=== PATIENT | male | born 1990 | race Caucasian/White ===

== ENCOUNTER 2018-05-05 17:18 | Observation (INO) | payer MEDICAID, SELFPAY ==
[2018-05-05] VITALS (8 sets, daily range): BP systolic 108–141; BP diastolic 52–83; PULSE 77–99; RESP 12–21; TEMP 36.1–37.3; O2SAT 92–96
--- NOTE | 2018-05-05 18:02 | DI.CT_ITS ---
SYMPTOMS/DIAGNOSIS: RIGHT UPPER AND LOWER QUADRANT ABDOMINAL PAIN CT EXAMINATION OF THE ABDOMEN AND PELVIS: The study was carried out with an intravenous administration of 125 cc of Omnipaque 350. There is some atelectasis and scarring involving the lung bases. A fatty liver is demonstrated. The gallbladder is unremarkable. There are no gallstones or ductal dilatation. The pancreas and spleen and adrenals are normal. Contrast material is noted in the intrarenal collecting structures. The possibility of calculi could not be entirely excluded. There are no ureteral calculi. There is some mild wall prominence in the proximal stomach and loops of bowel in the left upper quadrant of the abdomen. This is likely related to underdistention. Evaluation of the bowel is limited secondary to the lack of oral contrast. There is no evidence of bowel obstruction. The appendix is dilated, appearing to measure 1.1 cm. There is wall prominence. There are periappendiceal infiltrative changes. Mild bladder wall prominence is identified. The prostate is heterogeneous with calcifications identified. There is no evidence of free air or free fluid in the intraperitoneal space. No acute bony abnormality seen. A small fat- containing umbilical hernia is demonstrated and there is a left inguinal hernia that contains fat. There is no aortic aneurysm. Prominent lymph nodes in the right gali-abdomen measuring up to 1.4 cm in short axis are demonstrated. This may be reactive. SUMMARY: The appendix is dilated, measuring up to 1.1 cm. There is wall prominence and periappendiceal inflammatory changes are demonstrated. The findings would be consistent with an acute appendix. There are prominent enlarged lymph nodes in the right gali-abdomen measuring up to 1.4 cm in short axis. These findings may be reactive. Note is made of some mild wall prominence in the proximal stomach and loops with small bowel, likely related to underdistention. There is fatty infiltration of the liver and mild bladder wall prominence is identified and should be correlated with the patient's clinical status regarding the possibility of infection.
--- NOTE | 2018-05-05 18:05 | ED.GENADUL_ITS ---
Discharge Plan Disposition Patient Disposition: [facility] INPATIENT Condition: Improving Discharge Details Chief Complaint: Abd Prob Clinical Impression: Acute appendicitis Reason For Visit: ACUTE APPENDICITIS Admit Date/Time: 05/05/18 20:37 Admit Provider: Jennifer Thomson Attending Provider: Jennifer Thomson Primary Care Provider: Andria Melgar ED Provider: Hiwot Corona Discharge Data Discharge Date/Time-TO BE ENTERED AT DEPARTURE: 05/05/18 20:56 Medical Decision Making 27-year-old male who presents with right sided intermittent, aching, crampy pain , extending from RUQ to RLQ, worse in right lower quadrant since last night. Vitals within normal limits. Afebrile. Patient is tender to palpation in the right lower quadrant with rebound tenderness. Differential diagnosis includes acute appendicitis, acute cholecystitis, cholelithiasis, gastritis, pancreatitis, peptic ulcer disease. Will place an IV, bolus IV fluids, labs, CT abdomen and pelvis with IV contrast and dose of Toradol and Zofran. 1950 --labs and imaging reviewed. White blood cell count 21. CT notes appendicitis. Discussed with Dr. Villalpando and she will take patient to the OR. Patient informed of plan. Patient states pain improved. He appears more comfortable and is texting on phone. HPI General Mode of arrival: ambulatory . Date/Time Provider Initiated Documentation: 05/05/18 17:53 . Limitations to Documentation: no limitations . Information obtained by: patient . HPI Narrative: Patient is a 27-year-old male who presents to the ED with a complaint of right-sided abdominal pain since last night. Patient states the pain is worse in the right lower quadrant. He describes the pain is intermittent, aching, crampy, worse with movement or lifting. He states pain is currently 3/10. He denies radiation of pain. He states the pain is better with rest and not moving. He admits to nausea but denies any vomiting. He also admits to decreased appetite since last night. He states his last bowel but was this morning and within normal limits without bleeding. He denies fever , urinary symptoms. Past medical history: Respiratory spherocytosis Surgical history: Splenectomy at age 4 Social history: Denies tobacco, alcohol or drugs Medications: None Allergies: None PCP: None - moved from [place] in March Related Data Home Medications Medication Instructions Recorded Confirmed acetaminophen [Tylenol] 650 mg PO Q4H PRN PRN #30 tab 05/06/18 ibuprofen 600 mg PO QID PRN #30 cap 05/06/18 oxycodone 5 mg PO Q6H PRN PRN #5 tab 05/06/18 Previous Rx's Medication Instructions Recorded acetaminophen [Tylenol] 650 mg PO Q4H PRN PRN #30 tab 05/06/18 ibuprofen 600 mg PO QID PRN #30 cap 05/06/18 oxycodone 5 mg PO Q6H PRN PRN #5 tab 05/06/18 Allergies Allergy/AdvReac Type Severity Reaction Status Date / Time No Known Allergies Allergy Unverified 05/05/18 17:31 General Stated Complaint: Abd Prob VIC: 3 Review of Systems Review of Systems All systems reviewed & are unremarkable except as noted in HPI and below Constitutional Denies chills, Denies excessive sweating, Denies fatigue, Denies fever(s), Denies weakness and Denies weight loss Eyes Reports system reviewed and no additional complaints, except as docu and Denies blurry vision ENT Denies vertigo, Denies dizziness, Denies otalgia, Denies nasal congestion, Denies sore throat and Denies throat swelling Cardiovascular Denies chest pain, Denies syncope, Denies rapid heart rate and Denies dyspnea Respiratory Denies dyspnea Gastrointestinal Reports abdominal pain, Denies diarrhea, Reports nausea and Denies vomiting Genitourinary Denies hematuria, Denies dysuria and Denies flank pain Musculoskeletal Denies back pain and Denies joint swelling Integumentary/Breasts Denies lesions and Denies rash Neurologic Denies behavioral changes, Denies confusion, Denies vertigo, Denies dizziness, Denies syncope and Denies weakness Psychiatric Denies behavioral changes, Denies confusion and Denies depression Endocrine Denies excessive sweating and Denies fatigue Hematologic/Lymphatic Denies easy bruising and Denies lymphadenopathy Allergic/Immunologic Denies throat swelling PFSH Social History Smoking/Tobacco Use Status: Never Exam Const General: cooperative and healthy appearing Orientation: alert and awake [facility] Head: normal to inspection Ears: hearing grossly normal bilaterally and external ears normal General nose exam: external nose normal Face and sinus: normal facial exam Mouth: oral mucosae normal Eyes General: appearance normal, both eyes and all related structures Eyelids: eyelids normal EOM: EOM intact bilaterally Neck Neck: normal visual inspection Lymphatic: no lymphadenopathy noted Chest Chest: normal inspection of the chest Resp Effort & Inspection: normal respiratory effort and able to speak in complete sentences Auscultation: clear to auscultation bilaterally Cardio Rate: regular rate Rhythm: regular rhythm GI Inspection: normal to inspection Palpation: soft, not firm, no guarding, no hepatosplenomegaly, no masses and tender (Right side of abdomen, extending from right upper quadrant to right lower quadrant. Pain worse in right lower quadrant with positive rebound) Auscultation: normal bowel sounds Other: Negative heel jar sign. Negative obturator sign. Skin General skin exam: no rashes or lesions noted Neuro General: alert and awake Cognition: normal cognition Speech: speech normal Gait: normal gait Motor: muscle tone normal throughout Sensory Exam: no sensory deficits noted Extrem General: normal to inspection, full ROM and no edema Psych Appearance: grossly normal Mental Status: mental status grossly normal Speech and Movement: speech and movement normal Affect: normal affect Thought Process: normal Course Laboratory Tests Range/Units 05/05/18 05/05/18 18:30 18:30 WBC (4.4-10.8) k/cumm 21.36 H RBC (4.50-6.00) m/cumm 5.00 Hgb (13.5-17.5) g/dL 16.0 Hct (40.0-50.0) % 42.0 MCV (80-95) fL 84.0 MCH (27.0-33.0) pg 32.0 MCHC (32.0-36.0) g/dL 38.1 H RDW (11.8-14.1) % 14.6 H Plt Count (130-400) x1000/uL 643 H MPV (8.0-11.0) fL 8.6 Sodium (136-145) mmol/L 142 Potassium (3.5-5.1) mmol/L 3.8 Chloride (98-107) mmol/L 105 Carbon Dioxide (21.0-32.0) mmol/L 30.9 Anion Gap (3-11) mmol/L 6.1 BUN (7-18) mg/dL 16 Creatinine (0.70-1.30) mg/dL 1.01 Estimated GFR/1.73 m2 (mL/min/1.73m2) >= 60.00 Glucose (70-100) mg/dL 96 Calcium (8.5-10.1) mg/dL 8.8 Total Bilirubin (0.2-1.0) mg/dL 1.4 H AST (15-37) U/L 23 ALT (12-78) U/L 63 Alkaline Phosphatase (46-116) U/L 80 Total Protein (6.4-8.2) g/dL 7.6 Albumin (3.4-5.0) g/dL 4.1 Lipase (73-393) U/L 83 Vital Signs Temperature 98.1 F 05/05/18 17:26 Pulse 99 H 05/05/18 17:26 Respiratory Rate 16 05/05/18 17:26 Blood Pressure 131/74 05/05/18 17:26 Pulse Oximetry 96 05/05/18 17:26 Temperature 98.1 F 05/05/18 17:26 Temperature Source Skin 05/05/18 17:26 Pulse 99 H 05/05/18 17:26 Respiratory Rate 16 05/05/18 17:26 Respiratory Effort Non-Labored 05/05/18 17:26 Blood Pressure 131/74 05/05/18 17:26 Pulse Oximetry 96 05/05/18 17:26 Oxygen Delivery Method Room Air 05/05/18 17:26 Oxygen Flow Rate 0 05/05/18 17:26 Pain Level 3 05/05/18 17:26
[2018-05-05] MEDS: Ketorolac 30 MG/ML VIAL IVP (18:40)
[2018-05-05 18:48] LABS: Mean Platelet Volume 8.6 fL (8.0-11.0); Platelet Count 643 x1000/uL (130-400); RBC Distribution Width 14.6 % (11.8-14.1); White Blood Cell Count 21.36 k/cumm (4.4-10.8)
[2018-05-05] MEDS: Normal Saline 1,000 ML 1000 ML IV (18:54)
[2018-05-05] MEDS: Ondansetron 4 MG/2 ML VIAL IVP (18:54)
[2018-05-05 19:10] LABS: ALT 63 U/L (12-78); AST 23 U/L (15-37); Albumin 4.1 g/dL (3.4-5.0); Alkaline Phosphatase 80 U/L (46-116); Anion Gap 6.1 mmol/L (3-11); BUN 16 mg/dL (7-18); Bilirubin, Total 1.4 mg/dL (0.2-1.0); CO2 30.9 mmol/L (21.0-32.0); CREATININE 1.01 mg/dL (0.70-1.30); Calcium 8.8 mg/dL (8.5-10.1); Chloride 105 mmol/L (98-107); Glucose 96 mg/dL (70-100); Lipase 83 U/L (73-393); Potassium 3.8 mmol/L (3.5-5.1); Sodium 142 mmol/L (136-145); Total Protein 7.6 g/dL (6.4-8.2)
[2018-05-05 19:11] LABS: Mean Corp. HGB Concentration 38.1 g/dL (32.0-36.0)
[2018-05-05] MEDS: Omnipaque 350 MG/ML 100 ML BTL IV (19:14)
--- NOTE | 2018-05-05 19:51 | DI.VRAD_ITS ---
EXAM: CT Abdomen and Pelvis With Intravenous Contrast EXAM DATE/TIME: 05/05/2018 6:05 PM CLINICAL HISTORY: 27 years old, male; Signs and symptoms; Other: Ruq/rlq abd pain; Prior surgery; Surgery date: 6+ months; Surgery type: Splenectomy at the age of 4; Patient HX: R/O cholecystitis/appendicitis TECHNIQUE: Axial computed tomography images of the abdomen and pelvis with intravenous contrast. All CT scans at this facility use at least one of these dose optimization techniques: automated exposure control; mA and/or kV adjustment per patient size (includes targeted exams where dose is matched to clinical indication); or iterative reconstruction. Coronal and sagittal reformatted images were created and reviewed. CONTRAST: 125 ml of omnipaque 350 administered intravenously. COMPARISON: No relevant prior studies available. FINDINGS: Lower thorax: Atelectasis or scarring at the lung bases. Gas in the distal esophagus which can be seen with reflux. ABDOMEN: Liver: Hepatic steatosis. Gallbladder and bile ducts: Contracted gallbladder with no gallstones identified. Pancreas: Normal pancreas. Spleen: Normal. No splenomegaly. Adrenals: Normal adrenal glands. Kidneys and ureters: Probable contrast in the intrarenal collecting systems. Superimposed calculi would be difficult to exclude. No ureteral calculi seen. Stomach and bowel: There is some mild wall prominence to the proximal stomach and loops of bowel in the left upper quadrant of the abdomen (series 5 image 40). This may be related to under distention but should be correlated with any concern for gastritis/enteritis. Evaluation of the bowel is limited secondary to the lack of oral contrast. No evidence of bowel obstruction. Appendix: The appendix is dilated in appearance measuring 1.1 cm. There is wall prominence. There is david-appendiceal infiltrative changes. PELVIS: Bladder: Mild wall prominence. Reproductive: Prostate is heterogeneous with calcifications noted. ABDOMEN and PELVIS: Intraperitoneal space: Normal. No free air. No significant fluid collection. Bones/joints: No acute fracture. No dislocation. Mild skeletal degenerative changes. Soft tissues: Small fat containing umbilical hernia. Left inguinal hernia containing fat. Vasculature: Normal. No abdominal aortic aneurysm. Lymph nodes: Prominent lymph nodes in the right hemiabdomen measuring up to 1.4 cm on short axis. These may be reactive. IMPRESSION: 1.The appendix is dilated in appearance measuring 1.1 cm. There is wall prominence. There is david- appendiceal infiltrative changes. Findings most consistent with appendicitis in the appropriate clinical setting. 2. Prominent/enlarged lymph nodes in the right hemiabdomen measuring up to 1.4 cm on short axis. These may be reactive. Followup could be considered. 3.There is some mild wall prominence to the proximal stomach and loops of bowel in the left upper quadrant of the abdomen (series 5 image 40). This may be related to under distention but should be correlated with any concern for gastritis/enteritis. 4. Hepatic steatosis. Mild urinary bladder wall prominence that should be correlated with any concern for infection. Other findings as above. Dictated and Authenticated by: Cherise Arroyo MD. Ordering:ABENA WOO MD
--- NOTE | 2018-05-05 20:16 | W.PM.HP.N ---
Date of service: 05/05/18 Time of Service: 20:00 Assessment and Plan (1) Acute appendicitis: Current visit: Yes Status: Acute A\\ acute appendicitis. No signs of rupture on CT scan. i discussed Antibiotic treatment only vs surgery. Reviewed risks and benefits of both. With patients history of splenectomy and his risk of infection laparoscopic appendectomy was recommended. P\\ Laparoscopic appendectomy Risks, benefits and complications were reviewed. Complications include but are not limited to bleeding, pain, injury to bowel, infection and adverse reaction to the medications. Questions were entertained and answered to their satisfaction and they wished to proceed. No guarantees were given or implied. Patient will be admitted overnight for observation. Further recommendations pending his surgery. History of Present Illness Chief Complaint: RLQ pain Narrative: Mr. Phelps is a pleasant 27 year old male with a 24 hour history of RLQ abdominal pain. He was at work today and did not feel well and decided to come to the ED to get evaluated. He complains of RLQ pain and anorexia. He has had some mild nausea but denies any emesis. He last ate at [address] scan in the Ed revealed an enlarged appendix and some stranding as well as an enlarged lymph node. Review of Systems Constitutional Reports anorexia Cardiovascular Denies chest pain, Denies chest pain at rest, Denies irregular heart rhythm, Denies palpitations and Denies dyspnea Respiratory Denies cough and Denies dyspnea Gastrointestinal Reports as per HPI Genitourinary Reports system reviewed and no additional complaints, except as docu Neurologic Reports system reviewed and no additional complaints, except as docu Endocrine Reports system reviewed and no additional complaints, except as docu and Denies palpitations Hematologic/Lymphatic Denies easy bleeding and Denies easy bruising [facility] Social History Smoking/Tobacco Use Status: Never Meds Home Medications Medication Instructions Recorded Confirmed Type Unknown [No Known Home Meds] 05/05/18 05/05/18 History Allergies Allergy/AdvReac Type Severity Reaction Status Date / Time No Known Allergies Allergy Unverified 05/05/18 17:31 Exam Const General: cooperative, comfortable and no acute distress Resp Effort & Inspection: normal respiratory effort Auscultation: clear to auscultation bilaterally Cardio Rate: regular rate Heart Sounds: no gallops, no murmurs and no rubs GI Inspection: normal to inspection Palpation: soft, no hepatosplenomegaly and tender in the RLQ Results Labs : 05/05/18 18:30 05/05/18 18:30 Laboratory Results - last 24 hr 05/05/18 05/05/18 18:30 18:30 WBC 21.36 H RBC 5.00 Hgb 16.0 Hct 42.0 MCV 84.0 MCH 32.0 MCHC 38.1 H RDW 14.6 H Plt Count 643 H MPV 8.6 Sodium 142 Potassium 3.8 Chloride 105 Carbon Dioxide 30.9 Anion Gap 6.1 BUN 16 Creatinine 1.01 Estimated GFR/1.73 m2 >= 60.00 Glucose 96 Calcium 8.8 Total Bilirubin 1.4 H AST 23 ALT 63 Alkaline Phosphatase 80 Total Protein 7.6 Albumin 4.1 Lipase 83 Last Vital Signs Temp 98.1 F 05/05/18 17:26 Pulse 99 H 05/05/18 17:26 Resp 16 05/05/18 17:26 BP 131/74 05/05/18 17:26 Pulse Ox 96 05/05/18 17:26
[2018-05-05] MEDS: MetroNIDAZOLE 500 MG/100 ML BAG 100 MG IVPB (20:45)
[2018-05-05] MEDS: Lactated Ringers 1,000 ML 125 ML IV (20:48)
[2018-05-05] MEDS: LEVOFLOXACIN 750 MG/150 ML BAG 150 MG IVPB (21:26)
--- NOTE | 2018-05-05 22:19 | APP_PTH ---
PATIENT: YASH FUNG LOC: U#:[id number] AGE/SX: 27/M ROOM: 207 RE05/05/[address]: Jennifer Thomson MD : 1990 BED: B DIS: 05/06/2018 SPEC #: [id number] RECD: 05/06/18 12:58 STATUS: SHERRY REQ #: [id number] LISSETTE: 05/05/18 22:[address]: Jennifer Thomson DEPT: Surgical Specimen RECD BY: Emi Cardenas ENTERED: 05/06/18 12:59 SP TYPE: Appendix OTHR DR: VENTURA Ambriz Tissues: 1 - APPENDIX NOT INCIDENTAL Procedures: GROSS AND MICRO LEVEL 3 Comments: [id number]
[2018-05-06] MEDS: ACETAMINOPHEN 1,000 MG/100 ML BTL 400 MG IVPB ×2 (00:17→05:59)
[2018-05-06] MEDS: Pantoprazole 40 MG VIAL IVP (00:18)
[2018-05-06] MEDS: Ketorolac 30 MG/ML VIAL IVP ×2 (00:19→05:59)
[2018-05-06] MEDS: Normal Saline Flush 10 ML SYR IVP (00:20)
[2018-05-06 00:30] VITALS: BP 141/83; PULSE 77; RESP 18; TEMP 36.1; O2SAT 94
[2018-05-06] MEDS: MetroNIDAZOLE 500 MG/100 ML BAG 100 MG IVPB (04:09)
[2018-05-06 04:20] VITALS: BP 109/67; PULSE 70; RESP 18; TEMP 36.8; O2SAT 96
[2018-05-06] MEDS: Lactated Ringers 1,000 ML 125 ML IV (06:57)
[2018-05-06 07:25] VITALS: BP 109/66; PULSE 68; RESP 16; TEMP 36.4; O2SAT 95
[2018-05-06 07:29] LABS: Abs Immature Grans 0.04 k/cumm (0.0-0.09); Absolute Monocyte Count 1.51 k/cumm (0.11-0.7); Basophils % 0.1; HCT 40.4 % (40.0-50.0); Immature Grans % 0.2; Lymphocytes % 6.3; Mean Corp. HGB Concentration 37.6 g/dL (32.0-36.0); Mean Corpuscular Hemoglobin 32.4 pg (27.0-33.0); Mean Corpuscular Volume 86.1 fL (80-95); Mean Platelet Volume 9.1 fL (8.0-11.0); Monocytes % 8.6; Neutrophils % 84.8; Platelet Count 604 x1000/uL (130-400); RBC 4.69 m/cumm (4.50-6.00); RBC Distribution Width 14.4 % (11.8-14.1); White Blood Cell Count 17.56 k/cumm (4.4-10.8)
[2018-05-06 07:36] LABS: Anion Gap 10.8 mmol/L (3-11); BUN 14 mg/dL (7-18); CO2 23.2 mmol/L (21.0-32.0); CREATININE 0.77 mg/dL (0.70-1.30); Calcium 8.1 mg/dL (8.5-10.1); Chloride 104 mmol/L (98-107); Glucose 148 mg/dL (70-100); Potassium 3.9 mmol/L (3.5-5.1); Sodium 138 mmol/L (136-145)
--- NOTE | 2018-05-06 08:10 | PDOC.CMIN ---
- If Service Date Differs Date of service: 05/06/18 Time of Service: 08:10 Care Management Initial Assess REASON FOR HOSPITALIZATION:: Acute appendicitis PAST MEDICAL HISTORY/PAST SURGICAL HISTORY:: S/P splenectomy, S/P wisdom tooth extraction, Hereditary spherocytosis PREVIOUS FUNCTIONAL STATUS/SOCIAL/FAMILY SUPPORTS:: Valencia resides with his Giulia in [facility]. He is independent at baseline, drives, and manages ADL's CURRENT FUNCTIONAL STATUS:: Currently Valencia is lying in bed when this underwriter visits, he is pleasant and open to discussion. Valencia states that he has been up ambulating in the [place] this morning. ADVANCE DIRECTIVES:: None on file Has patient been provided with information about the portal?: Yes Did the patient sign up for the portal?: No CODE STATUS:: Full Code INSURANCE COVERAGE / FINANCIAL ISSUES:: Self Pay CURRENT HOME/COMMUNITY SERVICES/EQUIPMENT:: Currently Valencia has no services or medical equipment in the community. PRIMARY CARE PHYSICIAN:: Andria Melgar POTENTIAL DISCHARGE NEEDS:: F/U appointment with Dr. Thomson PATIENT/FAMILY EDUCATION NEEDS:: Review DC instructions, any limitations, and ongoing DC planning discussion. Discuss Ask Me Three ANTICIPATED BARRIERS TO DISCHARGE:: None identified at this time. TRANSPORTATION:: Via private vehicle with Giulia PLAN:: Valencia will return home with no anticipated services. He will F/U with Dr. Thomson and plan of care as prescribed. Valencia's Giulia to transport when ready.
--- NOTE | 2018-05-06 08:17 | INITIAL_ITS ---
- If Service Date Differs Date of service: 05/06/18 Time of Service: 08:10 Care Management Initial Assess REASON FOR HOSPITALIZATION:: Acute appendicitis PAST MEDICAL HISTORY/PAST SURGICAL HISTORY:: S/P splenectomy, S/P wisdom tooth extraction, Hereditary spherocytosis PREVIOUS FUNCTIONAL STATUS/SOCIAL/FAMILY SUPPORTS:: Valencia resides with his Giulia in [facility]. He is independent at baseline, drives, and manages ADL's CURRENT FUNCTIONAL STATUS:: Currently Valencia is lying in bed when this abstract writer visits, he is pleasant and open to discussion. Valencia states that he has been up ambulating in the [place] this morning. ADVANCE DIRECTIVES:: None on file Has patient been provided with information about the portal?: Yes Did the patient sign up for the portal?: No CODE STATUS:: Full Code INSURANCE COVERAGE / FINANCIAL ISSUES:: Self Pay CURRENT HOME/COMMUNITY SERVICES/EQUIPMENT:: Currently Valencia has no services or medical equipment in the community. PRIMARY CARE PHYSICIAN:: Andria Melgar POTENTIAL DISCHARGE NEEDS:: F/U appointment with Dr. Thomson PATIENT/FAMILY EDUCATION NEEDS:: Review DC instructions, any limitations, and ongoing DC planning discussion. Discuss Ask Me Three ANTICIPATED BARRIERS TO DISCHARGE:: None identified at this time. TRANSPORTATION:: Via private vehicle with Giulia PLAN:: Valencia will return home with no anticipated services. He will F/U with Dr. Thomson and plan of care as prescribed. Valencia's Giulia to transport when ready.
--- NOTE | 2018-05-06 08:28 | ROE_ITS ---
Date of Surgery: May 05, 2018 Preoperative Diagnosis: Acute appendicitis Postoperative Diagnosis: Acute appendicitis Procedure: Laparoscopic appendectomy Anesthesia: General endotracheal anesthesia Anesthesia Provider: Pacheco Henao CRNA Surgeon: Cortes Thomson M.D. Camera Assembler: Noé Cunha PA-C Specimen: Appendix Blood Loss: Less than 10 cc Complications: Malfunction of the Covidien endostapler Indications: Mr. Phelps is a pleasant 27-year-old gentleman with a 24-hour history of right lower quadrant pain who was seen in the ED. CT scan revealed acute appendicitis. Risks, benefits, and complications of lap aroscopic appendectomy were reviewed with him and he wished to proceed. No guarantees were given or implied. Findings: Very long appendix with a markedly dilated tip. No signs of perforation. Normal-appearing liver. Description of Procedure: After informed consent was obtained, the patient was taken to the operating room and placed in the cabrera pine position. Monitors and SCDs were applied and he was then placed under general anesthesia and in tubated. Once intubated a Joseph catheter was placed in a standard fashion. His abdomen was clipped of hair and then prepped and draped in a sterile surgical fashion with chlorhexidine. At this point a time-out was done. The patient's name, date of , procedure type, allergies to medications, DV T prophylaxis, and antibiotic given were all reviewed. His abdomen was then draped in a standard fashion. Next 0.5% Marcaine mixed with 1% lidocaine was in jected just above the umbilicus. A small 5 mm incision was made. The skin on either side was graspe d with sharp towel clamps, and while pulling up on the skin, a 5 mm Visiport was placed under direct visualization into the abdomen. Once in the abdomen, the abdomen was insufflated. Two more ports we re then placed: An 11 mm port was placed in the left lower quadrant and another 5 mm port was placed in the suprapubic area. The cecum was then identified. The bed was then positioned with the head do wn and rotated towards the left. The neck of the appendix was identified and followed around the cec um and then along the gutter until the tip was found. The appendix was adhered to the cecum. Using a harmonic scalpel, the appendix was then dissected away from the cecum, making sure not to burn the cecum itself, and an opening was created between the neck of the appendix and the cecum. I then atte mpted three times to fire a Covidien stapler across the neck of the appendix but was unsuccessful as the stapler kept jamming. Stapler was removed and the appendix was completely dissected away from th e cecum and the peritoneum using the harmonic scalpel. Once removed, a Prolene Endoloop was placed a round the appendix and cinched down at the neck of the appendix and a Vicryl Endoloop was then placed just above that. While trying to cut between the two, the Prolene Endoloop was cut, so another Vicr yl Endoloop was placed and cinched down and then using the harmonic I went across the appendix just a robbin the most distal suture. There was no spill of stool and the appendix was placed into an EndoCat ch bag and removed through the 11 mm port site. The right lower quadrant was then irrigated. The st ump was inspected and irrigated. No bleeding was noted. There was no stool leakage and the two #0 V icryl sutures were in good position. The fluid was suctioned out and at the end the effluent was gisselle ar. About 20 cc of lidocaine and Marcaine mixture was then injected above the liver bed to hopefully help with postoperative shoulder pain. The umbilical 5 mm port and the 10 mm port were removed. The abdomen was deflated and lastly the suprapubic 5 mm port was removed. The fascia of the 11 mm port site was closed using #0 Vicryl and the skin was closed with 4-0 Vicryl. Skin was cleaned and dried and Skin Affix was applied to all three incisions. Sponge, instrument, and needle counts were correct at the end of the case x2. At this point the patient was woken up and extubated, the Joseph was removed, and he was taken to PACU in stable condition.
[2018-05-06 09:13] LABS: Absolute Basophil Count 0.02 k/cumm (0.0-0.2); Absolute Lymphocyte Count 1.11 k/cumm (1.2-3.4); Absolute Neutrophil Count 14.89 k/cumm (1.2-6.7)
[2018-05-06 09:18] LABS: HGB 15.2 g/dL (13.5-17.5)
[2018-05-06 09:19] LABS: Diff Comment RBC Morph Reviewed
[2018-05-06 09:20] LABS: Microcytosis 2+
[2018-05-06 09:21] LABS: Poikilocytes 2+
[2018-05-06 11:15] VITALS: BP 115/79; PULSE 67; RESP 20; TEMP 36.5; O2SAT 98
--- NOTE | 2018-05-06 12:34 | PDOC.CMDIS ---
- If Service Date Differs Date of service: 05/06/18 Time of Service: 12:34 LACE Index Scoring Tool - Questions: Length of Stay (in days): 2 Acuity (Admit via E.D.?): Yes E.D. Visits: 1 - Answers: Total Score: 6 Risk of Readmission: Low Risk Care Management Discharge Reason for Hospitalization: Acute appendicitis Discharge Plan: Valencia will return home today with no services. He will F/U with Dr. Thomson and plan of care as prescribed. Valencia's Giulia to transport. Patient/Family Education Needs: Review DC instructions, any limitations, and discuss Ask me Three
--- NOTE | 2018-05-06 13:10 | DSE_ITS ---
Date of service: 05/06/18 Time of Service: 09:00 DS: Diagnosis Discharge Diagnosis (1) Acute appendicitis: Start date: 05/05/18 Start time: 16:00 Status: Acute Asessment and Plan: 1) Acute appendicitis: Current visit: Yes Status: Acute A\\ acute appendicitis. No signs of rupture on CT scan. i discussed Antibiotic treatment only vs surgery. Reviewed risks and benefits of both. With patients history of splenectomy and his risk of infection laparoscopic appendectomy was recommended. P\\ Laparoscopic appendectomy Risks, benefits and complications were reviewed. Complications include but are not limited to bleeding, pain, injury to bowel, infection and adverse reaction to the medications. Questions were entertained and answered to their satisfaction and they wished to proceed. No guarantees were given or implied. Patient will be admitted overnight for observation. Further recommendations pending his surgery. Review of Systems Constitutional Reports anorexia Cardiovascular Denies chest pain, Denies chest pain at rest, Denies irregular heart rhythm, Denies palpitations and Denies dyspnea Respiratory Denies cough and Denies dyspnea Gastrointestinal Reports as per HPI Genitourinary Reports system reviewed and no additional complaints, except as docu Neurologic Reports system reviewed and no additional complaints, except as docu Endocrine Reports system reviewed and no additional complaints, except as docu and Denies palpitations Hematologic/Lymphatic Denies easy bleeding and Denies easy bruising [facility] Social History Smoking/Tobacco Use Status: Never Exam Const General: cooperative, comfortable and no acute distress Resp Effort & Inspection: normal respiratory effort Auscultation: clear to auscultation bilaterally Cardio Rate: regular rate Heart Sounds: no gallops, no murmurs and no rubs GI Inspection: normal to inspection Palpation: soft, no hepatosplenomegaly and tender in the RLQ Discharge Plan Disposition Patient Disposition: HOME Condition: Improving Discharge Details Chief Complaint: Abd Prob Reason For Visit: ACUTE APPENDICITIS Admit Date/Time: 05/05/18 20:37 Admit Provider: Jennifer Thomson Attending Provider: Jennifer Thomson Primary Care Provider: Andria Melgar ED Provider: Hiwot Corona Hospital Course Hospital Course: Procedures: Laparoscopic appendectomy HPI: Mr. Phelps is a pleasant 27 year old male with a 24 hour history of RLQ abdominal pain. He was at work today and did not feel well and decided to come to the ED to get evaluated. He complains of RLQ pain and anorexia. He has had some mild nausea but denies any emesis. He last ate at [address] scan in the Ed revealed an enlarged appendix and some stranding as well as an enlarged lymph node, findings consistent with acute appendicitis. Recommended he undergo appendectomy. Hospital Course: Mr. Phelps underwent laparoscopic appendectomy without complications please see separate operative report. His postoperative course was fairly unremarkable. His diet was advanced as tolerated his pain control was transitioned from IV to p.o. within 24 hours. He did well with NSAIDs and acetaminophen but did require some opioid pain medication to control his symptoms. He remained afebrile throughout his postoperative course, and he was ambulating at baseline postoperatively. Given that he had a nonperforated appendicitis was afebrile tolerating a p.o. diet pain control with oral pain medication and ambulating at baseline, he was discharged home. Home Meds and New Rx's Prescriptions: New acetaminophen [Tylenol] 325 mg Tablet 650 mg PO Q4H PRN PRNQty: 30 RF: 0 oxycodone 5 mg Tablet 5 mg PO Q6H PRN PRNQty: 5 RF: 0 ibuprofen 200 mg capsule 600 mg PO QID PRN (Reason: fever or pain) Qty: 30 RF: 0 Discharge Instructions Instructions: Appendicitis (DC), Laparoscopic Appendectomy (DC) Additional Instructions: General Surgery Discharge Information Discharge Activities: 1. Continue incentive spirometry 10-15 times~every hour while awake and as tolerated 2. Ambulate at least 3 times a day for 15 minutes and as tolerated 3. Out of bed at least 3 times a day for 2 hours at a time, and as tolerated 4. You can shower, pat wounds dry, do not rub Restrictions: 1. No heavy lifting over 20 pounds for 2 weeks, no strenuous bending or twisting. 2. No swimming, baths, or immersion of wounds in water for 2 weeks. If you are having fever, chills, nausea, vomiting, pain not controlled with pain medications, bleeding or drainage from your wounds. Call [phone] or [phone] (after hours). I understand the above instructions and have no questions. _ Signature of Patient or Responsible Adult Escort Date/Time _ Name of Responsible Adult Escort _ Sugnature of Nurse Date/Time Stand Alone Forms: Nursing Discharge Form Referrals: Jennifer Thomson MD [ [facility] STAFF PHYSICIAN] - 05/15/18 10:30 am (Follow up after Laparoscopic appendectomy) Activity:: see instructions Equipment/Supplies:: No Equipment Needed Diet:: Normal Diet Discharge Orders Discharge Orders: Discharge Order (Routine); Ordered 05/06/18 Ordered By: John Anderson Discharge Data Discharge Date/Time-TO BE ENTERED AT DEPARTURE: 05/06/18 11:55 DS: Data Vitals/I&O Vitals and I&O: Vital Signs Temperature 36.5 C 05/06/18 11:15 Temperature Source Tympanic 05/06/18 11:15 Pulse 67 05/06/18 11:15 Pulse Rhythm Regular 05/06/18 07:28 Respiratory Rate 20 05/06/18 11:15 Respiratory Effort Non-Labored 05/06/18 07:28 Respiratory Depth Normal 05/06/18 07:28 Respiratory Pattern Normal 05/06/18 07:28 Blood Pressure 115/79 05/06/18 11:15 Pulse Oximetry 98 05/06/18 11:15 Respiratory End-tidal CO2 40 05/05/18 23:15 Oxygen Delivery Method Room Air 05/06/18 11:15 Oxygen Flow Rate 0 05/06/18 11:15 Pain Level 0 05/06/18 07:28 Intake & Output 05/05/18 05/06/18 05/06/18 18:59 06:59 18:59 Intake Total 2550 / 2550 1776.25 / 1776.25 Output Total 50 / 50 Balance 2500 / 2500 1776.25 / 1776.25 Weight 95.8 kg 95.8 kg Intake: IV 2550 / 2550 506.25 / 506.25 Oral 1270 / 1270 Output: Urine 50 / 50 Other: Urine Color Yellow Urine Appearance Clear Comment Void x1 in the toilet. Emesis Description None Voiding Methods Toilet Labs on day of discharge: Labs from last 24 hours 05/06/18 05/06/18 05/05/18 06:32 06:32 18:30 WBC 17.56 H 21.36 H RBC 4.69 5.00 Hgb 15.2 16.0 Hct 40.4 42.0 MCV 86.1 84.0 MCH 32.4 32.0 MCHC 37.6 H 38.1 H RDW 14.4 H 14.6 H Plt Count 604 H 643 H MPV 9.1 8.6 Immature Gran % 0.2 Neutrophils % 84.8 Lymphocytes % 6.3 Monocytes % 8.6 Eosinophils % 0.0 Basophils % 0.1 Absolute Neutrophils 14.89 H Absolute Lymphocytes 1.11 L Absolute Monocytes 1.51 H Absolute Eosinophils 0.00 Absolute Basophils 0.02 Differential Comment Rbc morph reviewed RBC Morphology See below Poikilocytosis 2+ Microcytosis 2+ Sodium 138 Potassium 3.9 Chloride 104 Carbon Dioxide 23.2 Anion Gap 10.8 BUN 14 Creatinine 0.77 Estimated GFR/1.73 m2 >= 60.00 Glucose 148 H Calcium 8.1 L Total Bilirubin AST ALT Alkaline Phosphatase Total Protein Albumin Lipase Path Cons Comment Pending 05/05/18 18:30 WBC RBC Hgb Hct MCV MCH MCHC RDW Plt Count MPV Immature Gran % Neutrophils % Lymphocytes % Monocytes % Eosinophils % Basophils % Absolute Neutrophils Absolute Lymphocytes Absolute Monocytes Absolute Eosinophils Absolute Basophils Differential Comment RBC Morphology Poikilocytosis Microcytosis Sodium 142 Potassium 3.8 Chloride 105 Carbon Dioxide 30.9 Anion Gap 6.1 BUN 16 Creatinine 1.01 Estimated GFR/1.73 m2 >= 60.00 Glucose 96 Calcium 8.8 Total Bilirubin 1.4 H AST 23 ALT 63 Alkaline Phosphatase 80 Total Protein 7.6 Albumin 4.1 Lipase 83 Path Cons Comment
== END 2018-05-06 11:55 | disposition home or self-care (01) ==
LOC: ER 23:27 → SUR 23:27 → MS 23:27
PROVIDERS: Admitting Provider Surgery; Emergency Provider Physician Assistant; PCP Nurse Practitioner Family; Visit Provider Surgery
PROC: 0DTJ4ZZ Resection of Appendix, Percutaneous Endoscopic Approach (ICD-10-PCS; CPT 44970; principal; 2018-05-05 20:35)
DX: K35.80 Unspecified acute appendicitis (principal)
CPT/HCPCS: 44970; 36415; 80048; 80053; 83690; 85027; 96361; 96365; 99223; 99285; NC; 74177; 85025; 88304; G0378; J0131; J1100; J1885; J1956; J2250; J2270; J2405; J3490

== ENCOUNTER 2019-02-15 09:21 | Outpatient (REF) | payer OTHER, SELFPAY ==
[2019-02-15 14:00] LABS: Abs Immature Grans 0.06 k/cumm (0.0-0.09); Absolute Basophil Count 0.06 k/cumm (0.0-0.2); Absolute Eosinophil Count 0.46 k/cumm (0.0-0.7); Absolute Lymphocyte Count 2.43 k/cumm (1.2-3.4); Absolute Monocyte Count 1.38 k/cumm (0.11-0.7); Absolute Neutrophil Count 5.33 k/cumm (1.2-6.7); Basophils % 0.6; Eosinophils % 4.7; HCT 44.8 % (40.0-50.0); Immature Grans % 0.6; Mean Corpuscular Volume 86.3 fL (80-95); Mean Platelet Volume 9.6 fL (8.0-11.0); Monocytes % 14.2; Neutrophils % 54.9; RBC 5.19 m/cumm (4.50-6.00); RBC Distribution Width 14.9 % (11.8-14.1); White Blood Cell Count 9.72 k/cumm (4.4-10.8)
[2019-02-15 14:19] LABS: ALT 148 U/L (12-78); AST 51 U/L (15-37); Albumin 4.1 g/dL (3.4-5.0); Alkaline Phosphatase 94 U/L (46-116); BUN 10 mg/dL (7-18); Bilirubin, Total 1.2 mg/dL (0.2-1.0); CREATININE 0.79 mg/dL (0.70-1.30); Calcium 8.8 mg/dL (8.5-10.1); Calculated LDL 84 mg/dL; Chloride 105 mmol/L (98-107); Cholesterol 162 mg/dL (50-200); Glucose 104 mg/dL (70-100); HDL Cholesterol 33 mg/dL (40-60); Potassium 4.2 mmol/L (3.5-5.1); Sodium 140 mmol/L (136-145); Total Protein 7.1 g/dL (6.4-8.2); Triglyceride 228 mg/dL (30-150)
[2019-02-15 14:47] LABS: HGB 16.4 g/dL (13.5-17.5)
[2019-02-15 14:48] LABS: Mean Corpuscular Hemoglobin 31.6 pg (27.0-33.0)
[2019-02-15 14:49] LABS: Mean Corp. HGB Concentration 36.6 g/dL (32.0-36.0)
[2019-02-15 15:28] LABS: Diff Comment RBC Morph Reviewed; Platelet Count 684 x1000/uL (130-400)
[2019-02-15 15:29] LABS: Howell-Jolly Bodies Present
== END 2019-02-15 09:41 ==
LOC: NCHCN 09:21
PROVIDERS: PCP Nurse Practitioner Family; Visit Provider Family Medicine
DX: D58.0 Hereditary spherocytosis (principal); Z13.220 Encounter for screening for lipoid disorders; Z13.228 Encounter for screening for other metabolic disorders
CPT/HCPCS: 80053; 80061; 83721; 85025